=== PATIENT | female | born 1955 | race Caucasian/White ===

== ENCOUNTER → 2016-05-09 | Outpatient (CLI) | payer OTHER ==
[~2016-05-09] MED LIST: ACCOLATE20 MG PO; ADULT LOW DOSE81 MG PO; ALBUTEROL IH; CINNAMON500 MG PO; CRANBERRY200 MG PO; CYMBALTA60 MG PO; DULCOLAX5 MG PO; FLEXERIL-DPS10 MG PO; LASIX40 M1 PO; LOPRESSOR50 MG PO; MAALOX DPS30 ML PO; MILK OF MAGNESI10 ML PO; MULTIVITAMINS1 EAC1 PO; OXYCODONE IR PO; PLAQUENIL200 MG PO; SENOKOT S1 TAB PO; SYNTHROID75 MCG PO; TUMS DPS500 MG PO; TYLENOL325 MG PO; ULTRAM50 MG PO; VALSARTAN80 MG PO; VITAMIN D1000 UNIT PO; XARELTO10 MG PO; ZANTAC150 MG PO; ZOCOR10 MG PO
== END | disposition home or self-care (01) ==
LOC: RAD.S 09:20
DX: Z12.31 Encounter for screening mammogram for malignant neoplasm of breast (principal)